=== PATIENT | male | born 1985 | race Asian ===

== ENCOUNTER 2018-04-13 19:59 | Emergency (ER) | payer BC ==
[~2018-04-13] VITALS: Ht 182.9 cm; Wt 68.0 kg
[2018-04-13 20:04] VITALS: Ht 182.9 cm; Wt 68.0 kg
[2018-04-13 22:24] VITALS: BP 126/81
== END 2018-04-13 22:22 | disposition home or self-care (01) ==
LOC: ED 19:59
DX: F41.9 Anxiety disorder, unspecified (principal)